=== PATIENT | female | born 1975 | race Caucasian/White ===

== ENCOUNTER 2023-08-07 11:47 | Day surgery (SDC) | payer OTHER ==
[2023-08-07] MEDS ORDERED: BUPIVACAINE 0.5% VIAL IJ ONE (11:48)
[2023-08-07 12:40] LABS: HCG URINE TEST NEGATIVE (NEGATIVE)
[2023-08-07] MEDS ORDERED: DIPRIVAN 200 MG/20 ML IV ONE (13:07)
[2023-08-07] MEDS ORDERED: Xylocaine-Mpf 2% 5 Ml Vial ONE (13:09)
[2023-08-07] MEDS ORDERED: Lactated Ringers 1,000 ML IV ONE (14:34)
--- NOTE | 2023-08-07 15:02 | XRAY ---
Indication: Bilateral L4-S1 MBB. Intraoperative fluoroscopy provided for 25 seconds. Single digital spot image submitted for interpretation demonstrates posterior needle tips projecting over the expected left and right L4-S1 nerve roots. Correlate with intraoperative findings/report.
--- NOTE | 2023-08-07 15:06 | XRAY ---
25 seconds of fluoroscopy was used in surgery for a bilateral L4-S1 MBB.
== END 2023-08-07 13:45 | disposition home or self-care (01) ==
LOC: SDC-PAIN 11:47
PROVIDERS: ATTEND Psychiatry & Neurology Pain Medicine
DX: M47.816 Spondylosis without myelopathy or radiculopathy, lumbar region (principal); Z79.899 Other long term (current) drug therapy
CPT/HCPCS: 64493; 64494; 72020; 77002; 81025; J2704

== ENCOUNTER 2023-10-30 11:05 | Day surgery (SDC) | payer OTHER ==
[2023-10-30] MEDS ORDERED: Depo-Medrol 40 MG/ML IM ONE (11:06)
[2023-10-30] MEDS ORDERED: BUPIVACAINE 0.5% VIAL IJ ONE (11:06)
[2023-10-30] MEDS ORDERED: XYLOCAINE-MPF 1% 5ML SDV IJ ONE (11:06)
[2023-10-30 11:20] LABS: HCG URINE TEST NEGATIVE (NEGATIVE)
[2023-10-30] MEDS ORDERED: DIPRIVAN 200 MG/20 ML IV ONE (13:01)
[2023-10-30] MEDS ORDERED: Lactated Ringers 1,000 ML IV ONE (13:40)
--- NOTE | 2023-10-30 17:01 | XRAY ---
Indication: Left L4-S1 RFA. Intraoperative fluoroscopy provided for 31 seconds. 3 digital spot images submitted for interpretation demonstrates posterior needle tips projecting over the expected left L4-S1 nerve roots. Correlate with intraoperative findings/report.
--- NOTE | 2023-10-30 17:42 | XRAY ---
31 seconds of fluoroscopy was used in surgery for a left L4-S1 RFA.
== END 2023-10-30 13:30 | disposition home or self-care (01) ==
LOC: SDC-PAIN 11:05
PROVIDERS: ATTEND Psychiatry & Neurology Pain Medicine
DX: M47.816 Spondylosis without myelopathy or radiculopathy, lumbar region (principal)
CPT/HCPCS: 64635; 64636; 72100; 77002; 81025; J1030; J2704

== ENCOUNTER 2023-10-31 10:54 | Day surgery (SDC) | payer OTHER ==
[2023-10-31] MEDS ORDERED: BUPIVACAINE 0.5% VIAL IJ ONE (10:55)
[2023-10-31] MEDS ORDERED: Depo-Medrol 40 MG/ML IM ONE (10:55)
[2023-10-31] MEDS ORDERED: XYLOCAINE-MPF 1% 5ML SDV IJ ONE (10:55)
[2023-10-31 11:13] LABS: HCG URINE TEST NEGATIVE (NEGATIVE)
[2023-10-31] MEDS ORDERED: DIPRIVAN 200 MG/20 ML IV ONE (12:37)
[2023-10-31] MEDS ORDERED: Versed 2 MG/2 ML Injection ONE (12:42)
--- NOTE | 2023-10-31 13:11 | XRAY ---
Indication: Right L4-S1 RFA. Intraoperative fluoroscopy provided for 35 seconds. 6 digital spot image submitted for interpretation demonstrates posterior needle tips projecting over the expected right L4-S1 nerve roots. Correlate with intraoperative findings/report.
--- NOTE | 2023-10-31 13:24 | XRAY ---
35 seconds of fluoroscopy was used in surgery for a right L4-S1 RFA.
[2023-10-31] MEDS ORDERED: Lactated Ringers 1,000 ML IV ONE (14:33)
== END 2023-10-31 13:08 | disposition home or self-care (01) ==
LOC: SDC-PAIN 10:54
PROVIDERS: ATTEND Psychiatry & Neurology Pain Medicine
DX: M47.816 Spondylosis without myelopathy or radiculopathy, lumbar region (principal)
CPT/HCPCS: 64635; 64636; 72100; 77002; 81025; J1030; J2250; J2704

== ENCOUNTER 2024-03-11 12:23 | Day surgery (SDC) | payer OTHER ==
[2024-03-11] MEDS ORDERED: Sodium Chloride 0.9(Preservative Free) 10 ML IJ ONE (12:24)
[2024-03-11] MEDS ORDERED: Decadron 4 MG INJ IV ONE (12:24)
[2024-03-11 14:10] LABS: HCG SERUM TEST NEGATIVE (NEGATIVE)
[2024-03-11] MEDS ORDERED: DIPRIVAN 200 MG/20 ML IV ONE ×2 (14:27→14:52)
[2024-03-11] MEDS ORDERED: Lactated Ringers 1,000 ML IV ONE (15:00)
--- NOTE | 2024-03-11 15:25 | XRAY ---
43 seconds of fluoroscopy was used in surgery for a right L4-S1 transforaminal SAMUEL.
--- NOTE | 2024-03-11 15:25 | XRAY ---
Indication: Right L4-S1 transforaminal SAMUEL. Intraoperative fluoroscopy provided for 43 seconds. 5 digital spot image submitted for interpretation demonstrates posterior needle tips projecting over the expected right L4 and L5 nerve roots. Small amount of contrast injected for needle tip placement. Correlate with intraoperative findings/report.
== END 2024-03-11 15:20 | disposition home or self-care (01) ==
LOC: SDC-PAIN 12:23
PROVIDERS: ATTEND Psychiatry & Neurology Pain Medicine
DX: M54.16 Radiculopathy, lumbar region (principal)
CPT/HCPCS: 36415; 64483; 64484; 72100; 77003; 84703; J1100; J2704; Q9966

== ENCOUNTER 2024-04-29 11:26 | Day surgery (SDC) | payer OTHER ==
[2024-04-29] MEDS ORDERED: Decadron 4 MG INJ IV ONE (11:27)
[2024-04-29] MEDS ORDERED: Sodium Chloride 0.9(Preservative Free) 10 ML IJ ONE (11:27)
[2024-04-29 12:04] LABS: HCG URINE TEST NEGATIVE (NEGATIVE)
[2024-04-29] MEDS ORDERED: DIPRIVAN 200 MG/20 ML IV ONE (13:29)
[2024-04-29] MEDS ORDERED: Lactated Ringers 1,000 ML IV ONE (14:34)
--- NOTE | 2024-04-29 15:09 | XRAY ---
Indication: Left L4-S1 transforaminal SAMUEL. Intraoperative fluoroscopy provided for 29 seconds. 5 digital spot image submitted for interpretation demonstrates posterior needle tips projecting over the expected left L4 and L5 nerve roots. Small amount of contrast injected for needle tip placement. Correlate with intraoperative findings/report.
--- NOTE | 2024-04-29 15:09 | XRAY ---
29 seconds of fluoroscopy was used in surgery for a left L4-S1 transforaminal SAMUEL.
== END 2024-04-29 13:44 ==
LOC: SDC-PAIN 11:26
PROVIDERS: ATTEND Psychiatry & Neurology Pain Medicine
DX: M54.16 Radiculopathy, lumbar region (principal)
CPT/HCPCS: 64483; 64484; 72100; 77003; 81025; J1100; J2704; Q9966